=== PATIENT | male | born 1950 | race Caucasian/White ===

== ENCOUNTER 2016-07-19 14:55 | Observation (INO) ==
--- NOTE | 2016-07-19 16:02 | Emergency Department Note ---
Disposition Clinical Impression: Ptosis of eyelid, bilateral, Neck pain, chronic Disposition: Admitted As Inpatient Condition: Undetermined Referrals: Stefano Ontiveros MD [Primary Care Provider] - Forms: Work/School Release, ED Satisfaction Letter Time of Disposition: 16:14 Neuro HPI - General Chief Complaint: ED General Medical Stated Complaint: can't open eyelids Time Seen by Provider: 07/19/16 15:13 Nursing Notes Reviewed: Yes Vital Signs Reviewed: Yes - History of Present Illness HPI Narrative: Patient is 65-year-old male chief complaint of cannot open his eyes times this morning. [facility] was [facility] and head CT was taken that was unremarkable and patient was sent here for further workup and MRI. Patient denies chest pain, heart palpitations, abdominal pain, recent sick contacts and weakness. Patient's only complaint is an exacerbation of his chronic neck pain which she states hurts a lot more than usual. Patient has recent history of bulging disc of the cervical spine. Patient states he has radiation up to the base of the back of his skull. - Related Data Home Medications: Home Medications Medication Instructions Recorded Confirmed Albuterol Neb [Proventil Neb] 2 puff IH Q4H PRN 11/18/15 11/18/15 Albuterol Sulfate [Albuterol 2 puff IH Q4HR PRN 11/18/15 11/18/15 Inhaler] Amlodipine Besylate 10 mg PO DAILY 11/18/15 11/18/15 Aspirin Enteric Coated [Aspirin EC] 81 mg PO DAILY 11/18/15 11/18/15 Atorvastatin Calcium [Lipitor] 80 mg PO DAILY 11/18/15 11/18/15 Carvedilol 12.5 mg PO BID 11/18/15 11/18/15 Diazepam [Valium] 5 mg PO TID 11/18/15 11/18/15 Doxazosin Mesylate [Cardura] 8 mg PO HS 11/18/15 11/18/15 FLUoxetine HCl [PROzac] 20 mg PO DAILY 11/18/15 11/18/15 Gabapentin [Neurontin] 6 tab PO DAILY 11/18/15 11/18/15 Glimepiride [Amaryl] 4 mg PO BID 11/18/15 11/18/15 Insulin Glargine,Hum.rec.anlog 15 unit SQ BID 11/18/15 11/18/15 [Lantus Solostar] Liraglutide [Victoza 2-Gaston] 1.2 mg SQ DAILY 11/18/15 06/20/16 OxyCODONE/APAP 10/325 [Percocet 1 each PO Q6HR PRN 11/18/15 06/20/16 10/325 MG] Insulin NPH Hum/Reg Insulin Hm 0 unit SQ 07/19/16 [Novolin 70-30 100 Unit/ml Vial] Lisinopril [Zestril] 10 mg PO BID 07/19/16 07/19/16 Allergies/Adverse Reactions: Allergies Allergy/AdvReac Type Severity Reaction Status Date / Time Amoxicillin Allergy See Verified 06/20/16 15:15 Comments Erythromycin Base Allergy See Verified 07/19/16 15:07 Comments exenatide Allergy See Verified 07/19/16 15:07 Comments metformin Allergy See Verified 07/19/16 15:07 Comments Penicillins Allergy See Verified 06/20/16 15:15 Comments pravastatin Allergy See Verified 07/19/16 15:07 Comments simvastatin Allergy See Verified 07/19/16 15:07 Comments sulfamethoxazole Allergy See Verified 07/19/16 15:07 Comments trimethoprim Allergy See Verified 07/19/16 15:07 Comments valproic acid Allergy UNKNOWN Verified 11/18/15 07:29 PER PATIENT baclofen AdvReac "GOOFY" Verified 11/18/15 07:29 NSAIDS (Non-Steroidal AdvReac See Verified 11/18/15 07:29 Anti-Inflamma Comments promethazine AdvReac "GOOFY" Verified 11/18/15 07:29 All systems ED: reviewed and negative except as stated. Constitutional: Denies: fever, chills, weakness Eyes: Denies: eye pain, eye discharge, vision change ENT ED: Reports: congestion Cardiovascular: Denies: chest pain, palpitations, dyspnea on exertion Respiratory: Denies: cough, dyspnea, wheezes Gastrointestinal: Reports: diarrhea. Denies: abdominal pain, nausea, vomiting Musculoskeletal: Reports: back pain (Chronic), neck pain Past Medical History - Past Medical History Attestation: Yes The following information was validated with the patient. Source: patient Medical history: Reports: CHF, diabetes, hypertension, kidney stones, myocardial infarction, other Surgical history: Reports: cholecystectomy, coronary bypass (CABG) (2004) Psychiatric history: Reports: bipolar, other - Social History Smoking Status: Former smoker Smokeless Tobacco Status: No Alcohol use: Reports: unknown Drug use: Reports: none Physical Exam Vital Signs Temperature 98.4 F 07/19/16 14:57 Pulse Rate 60 07/19/16 14:57 Respiratory Rate 18 07/19/16 14:57 Blood Pressure 150/89 07/19/16 14:57 O2 Sat by Pulse Oximetry 98 07/19/16 14:57 Temperature 98.4 F 07/19/16 14:57 Pulse Rate 60 07/19/16 14:57 Respiratory Rate 18 07/19/16 14:57 Blood Pressure 150/89 07/19/16 14:57 O2 Sat by Pulse Oximetry 98 07/19/16 14:57 Oxygen Delivery Oxygen Delivery Room Air -General Appearance: Patient is a -Neurological exam: Cranial nerves II-12 intact, no focal deficits observed, strength equal 5/5 bilaterally in upper and lower extremities, cerebellar motion test negative. Negative loss of sensation - Head Head exam: atraumatic, normocephalic, normal inspection - Eye Eye exam: Present: normal appearance, PERRL, EOMI, negative for scleral icterus negative for conjunctival pallor patient's eyelids had to be held open for exam. - ENT ENT exam: normal exam, normal oropharynx, mucous membranes moist - Neck Neck exam: Present: normal inspection, full ROM, trachea midline, negative JVD - Chest Chest inspection: Present: Patient has bilateral equal rise and fall of chest wall. Non-tender to palpation. - Respiratory Respiratory exam: Clear to auscultation bilaterally without wheezes rales or rhonchi Cardiovascular Cardiovascular exam: Present: regular rate, normal rhythm, normal heart sounds, without murmurs rubs or gallops. - Abdominal Exam Abdominal exam: Present: soft, nondistended, Non-Tender light and deep palpation in all quadrants. Bowel sounds normoactive throughout all 4 quadrants. Negative for hyper or hyperresonance. - Extremities Exam Extremities exam: Present: normal inspection, full ROM - Back Exam Back exam: Present: normal inspection, full ROM. Absent: tenderness, CVA tenderness (R), CVA tenderness (L) - Psychiatric Psychiatric exam: Present: normal affect, normal mood - Skin Skin exam: Present: warm, dry, intact, normal color - General General appearance: alert, in no apparent distress Course Course Narrative: He is seen and examined. MRI of the head is ordered. Patient admitted to the hospital - Consultations Consultation #1: Dr. Lopez's accept the patient for admission 1600 hrs. Time: 16:00 Vital Signs Temperature 98.4 F 07/19/16 14:57 Pulse Rate 60 07/19/16 14:57 Respiratory Rate 18 07/19/16 14:57 Blood Pressure 150/89 07/19/16 14:57 O2 Sat by Pulse Oximetry 98 07/19/16 14:57 Temperature 98.4 F 07/19/16 14:57 Pulse Rate 60 07/19/16 14:57 Respiratory Rate 18 07/19/16 14:57 Blood Pressure 150/89 07/19/16 14:57 O2 Sat by Pulse Oximetry 98 07/19/16 14:57 Oxygen Delivery Oxygen Delivery Room Air Neuro Symptoms/Deficit - MDM Narrative Medical decision making narrative: Mr. Griffiths is a 65-year-old man with past medical history for COPD CHF and CABG. Patient is here today for complaint of bilateral ptosis of the eyelid 10 hours ago. She reports waking up and unable to open his eyes. No previous history of this ever happening. Patient was seen [facility] had a full workup done with exception of the MRI of the head. Workup up until that point was unremarkable patient was sent here for further workup concern for possible stroke/CVA. CT of the head showed no acute intracranial bleeds. Patient also concerning for possible myasthenia gravis. Peak expiratory flow test ordered to make sure patient is not having a myasthenia gravis crisis if it happens to be myasthenia gravis. Patient is admitted to medicine for further evaluation. Dr. Lopez has accepted patient for admission. - Radiology Data Radiology results reviewed: Yes I reviewed the patient's radiology results. Brain MRI 07/19/16 15:49 IMPRESSION: 1. No acute intracranial abnormality. 2. Mild chronic white matter microvascular ischemic changes and stable remote lacunar infarcts. D/ / Shabbir Hancock MD / Shabbir Hancock MD Interpreting Provider: Shabbir Hancock MD Checklist - LKW: 3-4.5 hrs Add. Contraindications Patient/family understanding: The patient/family members have been counseled and understood the risk, benefit , and alternatives of treatment.
--- NOTE | 2016-07-19 18:07 | Emergency Department Note ---
START Narrative - START START: For this encounter, I have reviewed the resident, MACHINIST 2[employer], or PA documentation, treatment plan, and medical decision making; and I have had face to face time with this patient. 65-year-old [facility]. Patient reports he was last normal at 6 AM, he states he developed acute inability to open both eyes although he was still able to walk, talk and had no other focal neural deficits. [facility] reports the patient had no extraocular muscle range of motion to examination. They did a CT which was negative for acute bleeding and sent him to [place] for further evaluation with MRI and by a neurologist. On my initial evaluation the patient is able to open and close his eyes however he states he cannot keep them open. Patient has the ability to look to the left, superior but has difficulty with looking to the right and inferiorly in bilateral eyes. Pupils are equal and reactive to light and accommodation. Patient is comfortable with the plan for admission to the hospital for further evaluation.
[2016-07-19] MEDS ORDERED: Acetaminophen 325 MG TABLET PO PRN (20:06)
[2016-07-19] MEDS ORDERED: Naloxone 0.4 MG/ML INJ IVP PRN (20:06)
[2016-07-19] MEDS ORDERED: diazePAM 5 MG TABLET PO PRN (20:17)
[2016-07-19] MEDS ORDERED: Albuterol 2.5 MG/3 ML NEBULIZER IH PRN (20:17)
[2016-07-19] MEDS ORDERED: *HR* OxyCODONE/APAP 10/325 TABLET PO PRN (20:17)
[2016-07-19] MEDS ORDERED: Dextrose Gel 15 GM PO PRN ×2 (20:19)
[2016-07-19] MEDS ORDERED: *HR* Dextrose 50 % in Water (Syg) 50 ML SYRINGE IVP PRN (20:19)
[2016-07-19] MEDS ORDERED: D5% in Water 1,000 ML IV PRN (20:19)
--- NOTE | 2016-07-19 20:24 | Internal Med History&Physical ---
Date of Encounter: 07/19/16 Time of Encounter: 19:40 Assessment and Plan (1) Conjunctivitis Current visit: Yes Status: Suspected 1. Will treat with Ofloxin eye drops. 2. Outpatient follow up. 3. MRI negative for stroke. On history and exam, I have no suspicion for stroke. Nonetheless, will obtain ECHO and carotid Dopplers given risk factors. 4. Per patient and [facility] request, will consult neurology. Qualifiers: Conjunctivitis type: acute Acute conjunctivitis type: bacterial Laterality: bilateral Qualified Code(s): H10.33 - Unspecified acute conjunctivitis, bilateral (2) Diabetes mellitus Current visit: Yes Status: Chronic 1. Will hold oral meds and continue basal insulin with SSI. 2. Monitor for hypoglycemia. 3. Adjust insulin dosing accordingly. Qualifiers: Diabetes mellitus type: type 2 Diabetes mellitus complication status: with kidney complications Diabetes mellitus complication detail: with chronic kidney disease Diabetes mellitus longterm insulin use: with longterm use Chronic kidney disease stage: stage 2 (mild) Qualified Code(s): E11.22 - Type 2 diabetes mellitus with diabetic chronic kidney disease; N18.2 - Chronic kidney disease, stage 2 (mild); Z79.4 - senior care (current) use of insulin (3) Hypertension Current visit: Yes Status: Chronic 1. Continue home meds as appropriate. 2. Hold TRAVIS due to kidney dysfunction -- may be his baseline. 3. Monitor and adjust meds as necessary. Qualifiers: Hypertension type: essential hypertension Qualified Code(s): I10 - Essential (primary) hypertension (4) DVT prophylaxis Current visit: Yes Status: Acute 1. Heparin SQ. Internal Medicine - H&P: HPI Chief complaint: eyelid weakness; crusting eyes Admitted From: Emergency Dept Plans for Post Hospital Care: Home History of present illness: Mr. Griffiths is a 65 year old male who was seen in the [place] urgent care today and sent to our ER for possible stroke workup. At that time, he complained of inability to "see" and was unable to open his eyelids. He complained of crusting drainage from both eyes, and his eyelids were closed shut. His daughter brought him to the [place] urgent care where he had a workup including CT of the head. Workup was essentially negative, but he was referred to our ER for MRI, admission, and neurology consult. In the ER, an MRI was performed, and this was negative for any stroke. He was informed of the results, and he was then able to open his eyes easily and had no further complaints at that time. Nonetheless, he was admitted to the hospitalist service for further workup and care. Upon my assessment of the patient, patient is quite jovial, alert, and has no complaints whatsoever. He does reiterate the crusting drainage and eye complaints he had earlier today. He complains of some mild burning in his eyes and eye drainage for the last 2 days. He denies any fevers, cough, or congestion. With regards to neurologic complaints, he has no component of any numbness, weakness, paralysis, paresthesias, choking, gagging, dysarthria, and/ or dysphagia. He denies any visual acuity or any problems with his eyes other than the crusting drainage noted above. He does have risk factors for stroke which include diabetes, hypertension, hyperlipidemia, and cardiovascular disease. Given that his MRI was negative, I feel comfortable and confident that he did not have a stroke. Furthermore, I suspect his eye complaints are more from conjunctivitis and/or conversion disorder, and nothing neurovascular in nature. Other than MRI of the head, he had no other work-up in our ER. [facility] and the [facility] obtained [facility], including the EKG. Past Med Surg Social Fam HX - Past Medical History Attestation: Yes The following information was validated with the patient. Source: patient, old records reviewed Medical history: CHF, diabetes, hyperlipidemia, hypertension, kidney stones, myocardial infarction Psychiatric history: anxiety, bipolar, depression - Past Surgical History Surgical History: cholecystectomy, coronary bypass (CABG) (2004) - Social History Smoking Status: Former smoker Smokeless Tobacco Status: No Alcohol use: unknown Drug use: none Current living situation: Home, With Family Activity Level: Independent ambulation Recent Out of Country Travel Within the Last 8 Weeks: No - Family History Mother Living Status: Hx Family Cardiac Disorders: Yes Hx Family Neurologic Disorders: Yes Father Living Status: Hx Family Cardiac Disorders: Yes Internal Medicine - H&P: Meds Albuterol Neb [Proventil Neb] 2.5 mg IH Q4-6H PRN 11/18/15 [History] Albuterol Sulfate [Albuterol Inhaler] 2 puff IH Q6H PRN 11/18/15 [History] Amlodipine Besylate 10 mg PO DAILY 11/18/15 [History] Aspirin Enteric Coated [Aspirin EC] 81 mg PO DAILY 11/18/15 [History] Atorvastatin Calcium [Lipitor] 80 mg PO HS 11/18/15 [History] Carvedilol 12.5 mg PO BID 11/18/15 [History] Diazepam [Valium] 5 mg PO BID 11/18/15 [History] Doxazosin Mesylate [Cardura] 8 mg PO HS 11/18/15 [History] FLUoxetine HCl [PROzac] 40 mg PO DAILY 11/18/15 [History] Gabapentin [Neurontin] 600 mg PO QID 11/18/15 [History] Glimepiride [Amaryl] 4 mg PO BID 11/18/15 [History] Insulin Glargine,Hum.rec.anlog [Lantus Solostar] 15 unit SQ BID 11/18/15 [ History] Liraglutide [Victoza 2-Gaston] 0.6 mg SQ DAILY 11/18/15 [History] OxyCODONE/APAP 10/325 [Percocet 10/325 MG] 1 each PO QID 11/18/15 [History] Insulin NPH Hum/Reg Insulin Hm [Novolin 70-30 100 Unit/ml Vial] 0 unit SQ [History] Lisinopril [Zestril] 10 mg PO BID 07/19/16 [History] Allergies Amoxicillin Allergy (Verified 06/20/16 15:15) See Comments Erythromycin Base Allergy (Verified 07/19/16 15:07) See Comments exenatide Allergy (Verified 07/19/16 15:07) See Comments metformin Allergy (Verified 07/19/16 15:07) See Comments Penicillins Allergy (Verified 06/20/16 15:15) See Comments pravastatin Allergy (Verified 07/19/16 15:07) See Comments simvastatin Allergy (Verified 07/19/16 15:07) See Comments sulfamethoxazole Allergy (Verified 07/19/16 15:07) See Comments trimethoprim Allergy (Verified 07/19/16 15:07) See Comments valproic acid Allergy (Verified 11/18/15 07:29) UNKNOWN PER PATIENT baclofen Adverse Reaction (Verified 11/18/15 07:29) "GOOFY" NSAIDS (Non-Steroidal Anti-Inflamma Adverse Reaction (Verified 11/18/15 07:29) See Comments PATIENT ADVISED BY DR NOT TO TAKE promethazine Adverse Reaction (Verified 11/18/15 07:29) "GOOFY" - Constitutional Constitutional: no chills, no fever(s), no lethargy - EENT Eyes: discharge, irritation, no blurry vision, no change in vision Ears: no ear pain, no tinnitus Nose, mouth and throat: no nasal congestion, no nasal discharge, no post-nasal drip, no sinus pain, no sinus pressure, no sore throat - Cardiovascular Cardiovascular ROS IM: no chest pain, no dyspnea, no dyspnea on exertion, no edema, no palpitations, no syncope - Respiratory Respiratory: no cough, no dyspnea, no hemoptysis, no dyspnea on exertion, no wheezing, no chest congestion, no excessive phlegm production - Gastrointestinal Gastrointestinal: no abdominal pain, no diarrhea, no nausea, no vomiting - Genitourinary Genitourinary ROS male: no dysuria, no flank pain, no hematuria - Musculoskeletal Musculoskeletal ROS IM: no arthralgias, no back pain, no muscle weakness - Integumentary Integumentary IM: no rash, no jaundice - Neurological Neurological ROS: no disequilibrium, no dizziness, no focal weakness, no headache(s), no lack of coordination, no numbness, no paresthesias, no weakness , no other visual disturbances - Psychiatric Psychiatric: anxiety, depression - Endocrine Endocrine IM: no cold intolerance, no heat intolerance, no polydipsia, no polyuria - Hematologic/Lymphatic Hematologic/Lymphatic: no easy bruising, no lymphadenopathy - Allergic/Immunologic Allergic/Immunologic: no wheezing, no GI upset with certain foods - Constitutional Vitals: Temp Pulse Resp BP Pulse Ox 97.7 F 88 16 145/78 100 07/19/16 18:13 07/19/16 18:13 07/19/16 18:13 07/19/16 18:13 07/19/16 18:13 General appearance: Present: cooperative, A&O X 3, pleasant (unusually very pleasant), no acute distress - Head Head exam: Present: atraumatic, normal inspection - Expanded Head Exam Head exam expanded: Absent: abrasion, contusion, general tenderness - Eye Eye exam: Present: conjunctival injection, EOMI, PERRL. Absent: scleral icterus Pupils: Present: normal accommodation Additional comments: mild crusting drainage from both eyes bilaterally - ENT ENT exam: Present: mucous membranes moist, normal exam, normal oropharynx - Expanded ENT Exam Mouth exam: Present: moist Throat exam: Present: normal inspection - Neck Neck exam general surgery: Present: full ROM, normal inspection, supple. Absent : lymphadenopathy, thyromegaly - Expanded Neck Exam Neck exam: Absent: carotid bruit - Respiratory Respiratory exam: Present: CTAB. Absent: chest wall tenderness, rales, rhonchi , wheezes - Cardiovascular Cardiovascular exam: Present: RRR, +S1, +S2, systolic murmur (grade II). Absent : diastolic murmur, JVD - GI/Abdominal GI/Abdominal exam: Present: normal bowel sounds, soft. Absent: guarding, hepatomegaly, rebound, splenomegaly, tenderness - Extremities Exam Extremities exam: Present: full ROM, normal capillary refill, warm. Absent: calf tenderness, joint swelling, tenderness Additional comments: right foot in an immoblizer/boot due to recent injury - Back Exam Back exam: Present: normal inspection. Absent: CVA tenderness (L), CVA tenderness (R) - Neurological Exam Neurological exam: Present: alert, CN II-XII intact, oriented X3, reflexes normal, no focal deficits, strengths equal and symetr throughout. Absent: motor sensory deficit, facial droop, speech deficit Additional comments: I appreciate no focal deficits on exam - Psychiatric Psychiatric exam: Present: normal affect, normal mood Additional comments: seems inappropriately jovial beyond expectations - Skin Skin exam: Present: dry, warm. Absent: rash Internal Med - H&P Results - Labs Labs: I personally viewed and [facility] and they include the following: PTT 25.6 INR 0.9 PT 9.8 CK 134 Ethanol < 3 Calcium 8.4 Sodium 142 Potassium 4.0 Chloride 107 CO2 28 Glucose 219 BUN 122 Creatinine 1.44 WBC 8.1 Hemoglobin 14.1 Hematocrit 42.2 Platelet count 227 - EKG Data -: EKG Interpreted by Myself EKG shows normal: sinus rhythm Rate: bradycardia - EKG Data Prior EKG available for review: no EKG comments: 07/19/16 20:42 [facility] copy -- also has prolonged Qtc = 461 - Diagnostic Studies MRI - head Additional comments: I reviewed results
[2016-07-19] MEDS ORDERED: Ofloxacin OPTH Drops 5 ML BOTTLE BOTH EYES SCH (20:30)
[2016-07-19] MEDS: *HR* Heparin 5,000 UNIT/ML VIAL SQ SCH (21:06)
[2016-07-19] MEDS: Ciprofloxacin OPTH Soln 2.5 ML BOTTLE BOTH EYES SCH (21:06)
[2016-07-19] MEDS: Gabapentin 300 MG CAPSULE PO SCH (21:07)
[2016-07-19] MEDS: Insulin DETEMIR 100 UNIT/ML X5UNITS SQ SCH (21:12)
[2016-07-19 22:51] LABS: Hemoglobin A1C 8.3 %
[2016-07-20] MEDS: Ciprofloxacin OPTH Soln 2.5 ML BOTTLE BOTH EYES SCH ×2 (04:14→08:01)
[2016-07-20 04:43] LABS: Basophils # 0.1 K/mcL (0.0-0.2); Basophils % 0.9 %; Eosinophils # 0.4 K/mcL (0.0-0.6); Eosinophils % 4.5 %; Hematocrit 39.5 % (37.5-50.1); Hemoglobin 13.2 g/dL (12.9-16.9); Immature Granulocytes % 0.3 % (0-4); Lymphocytes # 2.4 K/mcL (0.6-4.6); Lymphocytes % 29.9 %; Mean Corpuscular HGB Conc 33.4 g/dL (31.6-35.5); Mean Corpuscular Volume 89.8 fL (83.0-100.0); Mean Platelet Volume 11.5 fL (9.4-12.4); Monocytes # 0.7 K/mcL (0.0-1.3); Monocytes % 8.7 %; Neutrophils # 4.4 K/mcL (1.6-8.9); Platelet Count 200 K/mcL (140-400); Red Cell Distribution Width 13.4 % (11.5-14.5); Segmented Neutrophils % 55.7 %
[2016-07-20 04:46] LABS: INR 1.1; Prothrombin Time 11.5 Seconds (9.4-12.1)
[2016-07-20 04:49] LABS: Activated Partial Thrombo Time 31.9 Seconds (26.0-36.0)
[2016-07-20 04:55] LABS: BUN/Creatinine Ratio 14 (6-26); Blood Urea Nitrogen 19 mg/dL (8-26); Carbon Dioxide 25 mEq/L (19-29); Chloride 106 mEq/L (98-109); Sodium 140 mEq/L (136-145); eGFR For African Americans > 60 (> 60)
[2016-07-20 04:56] LABS: Alanine Aminotransferase 20 Units/L (0-55); Albumin 2.9 g/dL (3.5-5.0); Albumin/Globulin Ratio 0.8 (1.1-2.2); Alkaline Phosphatase 89 Units/L (38-126); Aspartate Amino Transferase 15 Units/L (5-34); Bilirubin,Total 0.2 mg/dL (0.2-1.2); Calcium 8.6 mg/dL (8.6-10.8); Cholesterol 175 mg/dL (< 200); Globulin 3.8 g/dL (2.4-3.5); Glucose 209 mg/dL (70-99); HDL Cholesterol 22 mg/dL (40-59); Magnesium 2.3 mg/dL (1.6-2.6); Osmolality,Calculated 298 (280-300); Total Protein 6.7 g/dL (6.0-8.3); Triglycerides 591 mg/dL (< 150); eGFR For Non-African Americans 53 (> 60)
[2016-07-20] MEDS: *HR* Heparin 5,000 UNIT/ML VIAL SQ SCH (06:07)
[2016-07-20] MEDS: Insulin DETEMIR 100 UNIT/ML X5UNITS SQ SCH (07:54)
[2016-07-20] MEDS: Insulin LISPRO 300 UNITS/3 ML VIAL SQ SCH ×2 (07:54→12:36)
[2016-07-20] MEDS: Gabapentin 300 MG CAPSULE PO SCH ×2 (07:55→12:36)
[2016-07-20] MEDS ORDERED: Aspirin Enteric Coated 81 MG Tablet PO SCH (09:00)
[2016-07-20] MEDS ORDERED: amLODIPine 5 MG TABLET PO SCH (09:00)
--- NOTE | 2016-07-20 10:45 | Neurology - Consult Note ---
<Braden Grissom - Last Filed: 07/20/16 11:04> Date of Encounter: 07/20/16 Time of Encounter: 09:35 Assessment and Plan (1) Ptosis of eyelid, bilateral Current Visit: Yes Status: Acute - seems to have spontaneously resolved - no radiographic or exam findings to suggest possible etiology - Does have diabetic changes on fundoscopic exam but should not be related - No obvious conjunctivitis - Would recommend supportive care - Follow up with his patient account liaison in 1-2 weeks - Further recommendations pending attending evaluation History of Present Illness Chief complaint: can't open eyes HPI: Mr. Griffiths is a 65 year old male who presents through the [facility] from the [facility] with the CC: "I couldn't open my eyes' Patient reports that he woke up yesterday morning to the alarm on his phone. He was getting up to get his grandchild ready for school. He could open his eyes and was having no changes in vision. He reports he walked into the bathroom to start getting ready and could no longer open his eyes. He denies any headache, changes in his vision, neck pain, chest pain, shortness of breath , dizziness, syncope, abdominal pain, n/v/d, pain or swelling in his legs, numbness of weakness in any extremity. He states that his R eye began to water and throughout the day, noticed that if he rubbed his eyes or washed them with soap that he could open his eye a little. He reports similar issues with the left eye. He does state that he was supposed to see Dr. Romero with Neurology here but had to cancel his appointment. He went to the [place] yesterday to see the neurologist there but he was on vacation so he was sent to the ED for a MRI. MRI did not show any acute changes. According to record review, after the patient was told this, he could open his eyes again. He has no complaints currently. Has had no further issues of any kind since arrival. Past Med Surg Social Fam HX - Past Medical History Medical history: CHF, diabetes, hyperlipidemia, hypertension, kidney stones, myocardial infarction Psychiatric history: anxiety, bipolar, depression - Past Surgical History Surgical History: cholecystectomy, coronary bypass (CABG) (2004) - Social History Smoking Status: Former smoker Smokeless Tobacco Status: No Alcohol use: unknown Drug use: none - Family History Mother Living Status: Hx Family Cardiac Disorders: Yes Hx Family Neurologic Disorders: Yes Father Living Status: Hx Family Cardiac Disorders: Yes Medications and Allergies Albuterol Neb [Proventil Neb] 2.5 mg IH Q4-6H PRN 11/18/15 [History] Albuterol Sulfate [Albuterol Inhaler] 2 puff IH Q6H PRN 11/18/15 [History] Amlodipine Besylate 10 mg PO DAILY 11/18/15 [History] Aspirin Enteric Coated [Aspirin EC] 81 mg PO DAILY 11/18/15 [History] Atorvastatin Calcium [Lipitor] 80 mg PO HS 11/18/15 [History] Carvedilol 12.5 mg PO BID 11/18/15 [History] Diazepam [Valium] 5 mg PO BID 11/18/15 [History] Doxazosin Mesylate [Cardura] 8 mg PO HS 11/18/15 [History] FLUoxetine HCl [Prozac] 40 mg PO DAILY 11/18/15 [History] Gabapentin [Neurontin] 600 mg PO QID 11/18/15 [History] Glimepiride [Amaryl] 4 mg PO BID 11/18/15 [History] Insulin Glargine,Hum.rec.anlog [Lantus Solostar] 15 unit SQ BID 11/18/15 [ History] Liraglutide [Victoza 2-Gaston] 0.6 mg SQ DAILY 11/18/15 [History] OxyCODONE/APAP 10/325 [Percocet 10/325 MG] 1 each PO QID 11/18/15 [History] Insulin NPH Hum/Reg Insulin Hm [Novolin 70-30 100 Unit/ml Vial] 0 unit SQ [History] Lisinopril [Zestril] 10 mg PO BID 07/19/16 [History] Ciprofloxacin OPTH Soln [Ciloxan OPTH Soln] 1 drop BOTH EYES Q6H 5 Days [Rx] Allergies Amoxicillin Allergy (Verified 06/20/16 15:15) See Comments Erythromycin Base Allergy (Verified 07/19/16 15:07) See Comments exenatide Allergy (Verified 07/19/16 15:07) See Comments metformin Allergy (Verified 07/19/16 15:07) See Comments Penicillins Allergy (Verified 06/20/16 15:15) See Comments pravastatin Allergy (Verified 07/19/16 15:07) See Comments simvastatin Allergy (Verified 07/19/16 15:07) See Comments sulfamethoxazole Allergy (Verified 07/19/16 15:07) See Comments trimethoprim Allergy (Verified 07/19/16 15:07) See Comments valproic acid Allergy (Verified 11/18/15 07:29) UNKNOWN PER PATIENT baclofen Adverse Reaction (Verified 11/18/15 07:29) "GOOFY" NSAIDS (Non-Steroidal Anti-Inflamma Adverse Reaction (Verified 11/18/15 07:29) See Comments PATIENT ADVISED BY DR NOT TO TAKE promethazine Adverse Reaction (Verified 11/18/15 07:29) "GOOFY" All Systems: A 10-system review of systems was performed and is negative for pertinent findings except as documented above in the HPI. - Constitutional Constitutional ROS IM: no fatigue, no fever(s) - Nose, Mouth, Throat Nose, mouth and throat: no dysphagia - Cardiovascular Cardiovascular ROS IM: as per HPI - Respiratory Respiratory IM: no cough, no dyspnea - Gastrointestinal Gastrointestinal: as per HPI - Musculoskeletal Musculoskeletal ROS IM: neck pain (chronic, no change), no back pain - Neurological Neurological ROS: as per HPI - Psychiatric Psychiatric general PM: as per HPI - Endocrine Endocrine IM: no fatigue, no flushing Physical Examination - Vital Signs Vital Signs: Initial Vital Signs Temp Pulse Resp BP Pulse Ox 98.4 F 60 18 150/89 98 07/19/16 14:57 07/19/16 14:57 07/19/16 14:57 07/19/16 14:57 07/19/16 14:57 - Constitutional General appearance: comfortable - Neurologic Detailed motor examination: grossly full strength in all extremities, full strength in all major muscle groups Motor examination - right side: 5/5: deltoids, biceps, triceps, wrist flexion, wrist extension, cloth stock sorter, hip flexors, tibialis Anterior, quadriceps, toe extension (EHL), plantarflexion Motor examination - left side: 5/5: deltoids, biceps, triceps, wrist flexion, wrist extension, hip flexors, cloth stock sorter, quadriceps, tibialis Anterior (patient in ortho boot, unable to examine, states h/o "foot drop" after a surgery), toe extension (EHL) (see above), plantarflexion (see above) Detailed sensory examination: intact Reflexes: Patella: 1+, Achilles: 1+ Mental Status Examination: awake, alert, oriented to person, oriented to place, oriented to time, follows commands appropriately, answers questions appropriately, no agnosia, no aphasia, no aproxia Cranial nerve examination: PERRL, EOMI, visual canales intact, sensory to face intact, mastication intact, no facial asymmetry is present, no dysarthria, hearing is intact symmetrically, soft palate elevates bilaterally upon phonation , flexes SCM and trapezius muscles symmetrically with full power, tongue protrudes midline, no atrophy or facial fasiculations present Cranial Nerve Exam: ptosis: Left (NO PTOSIS BILAT), CN III palsy: Left ( NEGATIVE BILAT) Cerebellar examination: no dysmetria, performs finger to nose and heel to gerber symmetrically without ataxia, no gait ataxia, no truncal ataxia, no difficulty with rapid alternating movements Results - Laboratory Findings CBC and BMP: 07/20/16 04:02 07/20/16 04:02 Abnormal lab findings: Abnormal lab results Creatinine 1.36 mg/dL (0.72-1.25) H 07/20/16 04:02 Est GFR (Non-Af Amer) 53 (> 60) L 07/20/16 04:02 Glucose 209 mg/dL (70-99) H 07/20/16 04:02 POC Glucose 197 (58-89) H 07/20/16 07:11 Hemoglobin A1c 8.3 % (-5.6) H 07/19/16 22:00 Albumin 2.9 g/dL (3.5-5.0) L 07/20/16 04:02 Globulin 3.8 g/dL (2.4-3.5) H 07/20/16 04:02 Albumin/Globulin Ratio 0.8 (1.1-2.2) L 07/20/16 04:02 Triglycerides 591 mg/dL (< 150) H 07/20/16 04:02 HDL Cholesterol 22 mg/dL (40-59) L 07/20/16 04:02 Cholesterol/HDL Ratio 8.0 (0-4.9) H 07/20/16 04:02 Consult Discharge Plan - Plan Additional Instructions: Follow-up with primary care provider in 1-2 weeks, follow-up with your patient account liaison in 1-2 weeks Referrals: Stefano Ontiveros MD [Primary Care Provider] - 07/26/16 1:20 pm Prescriptions: Ciprofloxacin OPTH Soln [Ciloxan OPTH Soln] 1 drop BOTH EYES Q6H 5 Days <Gato Oh I - Last Filed: 07/20/16 16:19> Date of Encounter: 07/20/16 Assessment and Plan (1) Ptosis of eyelid, bilateral Current Visit: Yes Status: Resolved Was seen and examined aggravated with Dr. Feliciano assessment and plan. At the moment patient did not have any focal neurological signs and symptoms and his neurological examination is completely normal. He did not have any drooping of the eyelids neither has any blepharospasms. Cranial nerves are within normal limits. MRI scan did not show any evidence of a stroke or any other abnormality At the moment I am not able to explain his symptoms with any typical neurological disorder particularly I did not noticed any sinus symptoms and history of exam to be suggestive of myasthenia or any dystrophic. Perhaps may Be Related to Underlying Behavior Abnormality. Regardless he should be evaluated by a psychiatrist if he continued to be symptomatic again no neurological symptoms at this time we will sign off call if needed Gato Oh MD History of Present Illness HPI: Mr. Griffiths is a 65 year old male All Systems: A 10-system review of systems was performed and is negative for pertinent findings except as documented above in the HPI. Physical Examination - Vital Signs Vital Signs: Initial Vital Signs Temp Pulse Resp BP Pulse Ox 98.4 F 60 18 150/89 98 07/19/16 14:57 07/19/16 14:57 07/19/16 14:57 07/19/16 14:57 07/19/16 14:57 Results - Laboratory Findings CBC and BMP: 07/20/16 04:02 07/20/16 04:02 Abnormal lab findings: Abnormal lab results Creatinine 1.36 mg/dL (0.72-1.25) H 07/20/16 04:02 Est GFR (Non-Af Amer) 53 (> 60) L 07/20/16 04:02 Glucose 209 mg/dL (70-99) H 07/20/16 04:02 POC Glucose 152 (58-89) H 07/20/16 11:30 Hemoglobin A1c 8.3 % (-5.6) H 07/19/16 22:00 Albumin 2.9 g/dL (3.5-5.0) L 07/20/16 04:02 Globulin 3.8 g/dL (2.4-3.5) H 07/20/16 04:02 Albumin/Globulin Ratio 0.8 (1.1-2.2) L 07/20/16 04:02 Triglycerides 591 mg/dL (< 150) H 07/20/16 04:02 HDL Cholesterol 22 mg/dL (40-59) L 07/20/16 04:02 Cholesterol/HDL Ratio 8.0 (0-4.9) H 07/20/16 04:02
[2016-07-20 11:34] VITALS: BP 124/77
--- NOTE | 2016-07-20 14:57 | Discharge Summary ---
Date of Encounter: 07/20/16 Time of Encounter: 14:00 - Discharge Diagnosis (1) Ptosis of eyelid, bilateral Priority: Primary Status: Resolved (2) Conjunctivitis Priority: Primary Status: Suspected Qualifiers: Conjunctivitis type: acute Acute conjunctivitis type: bacterial Laterality: bilateral Qualified Code(s): H10.33 - Unspecified acute conjunctivitis, bilateral (3) Conversion disorder Priority: Primary Status: Suspected Comments: Neurological examination inconsistent. Bilateral ptosis and consistent. Handbag Frames Inspector strength equal. CVA ruled out. No vision changes. (4) CKD (chronic kidney disease) stage 3, GFR 30-59 ml/min Priority: Secondary Status: Chronic Comments: Consistent with his baseline, follow-up outpatient (5) DVT prophylaxis Priority: Primary Status: Acute Comments: Subcutaneous heparin while admitted (6) Neck pain, chronic Priority: Secondary Status: Chronic (7) Diabetes mellitus Priority: Secondary Status: Chronic Comments: Moderately controlled with an A1c of 8.3%, recommend continued follow-up outpatient Qualifiers: Diabetes mellitus type: type 2 Diabetes mellitus complication status: with kidney complications Diabetes mellitus complication detail: with chronic kidney disease Diabetes mellitus chcf insulin use: with chcf use Chronic kidney disease stage: stage 2 (mild) Qualified Code(s): E11.22 - Type 2 diabetes mellitus with diabetic chronic kidney disease; N18.2 - Chronic kidney disease, stage 2 (mild); Z79.4 - retirement (current) use of insulin (8) Hypertension Priority: Secondary Status: Chronic Comments: Controlled, recommend continued follow-up outpatient Qualifiers: Hypertension type: essential hypertension Qualified Code(s): I10 - Essential (primary) hypertension - Discharge Medications Prescriptions: Ciprofloxacin OPTH Soln [Ciloxan OPTH Soln] 1 drop BOTH EYES Q6H 5 Days Home Medications: Albuterol Neb [Proventil Neb] 2.5 mg IH Q4-6H PRN 11/18/15 [History] Albuterol Sulfate [Albuterol Inhaler] 2 puff IH Q6H PRN 11/18/15 [History] Amlodipine Besylate 10 mg PO DAILY 11/18/15 [History] Aspirin Enteric Coated [Aspirin EC] 81 mg PO DAILY 11/18/15 [History] Atorvastatin Calcium [Lipitor] 80 mg PO HS 11/18/15 [History] Carvedilol 12.5 mg PO BID 11/18/15 [History] Diazepam [Valium] 5 mg PO BID 11/18/15 [History] Doxazosin Mesylate [Cardura] 8 mg PO HS 11/18/15 [History] FLUoxetine HCl [Prozac] 40 mg PO DAILY 11/18/15 [History] Gabapentin [Neurontin] 600 mg PO QID 11/18/15 [History] Glimepiride [Amaryl] 4 mg PO BID 11/18/15 [History] Insulin Glargine,Hum.rec.anlog [Lantus Solostar] 15 unit SQ BID 11/18/15 [ History] Liraglutide [Victoza 2-Gaston] 0.6 mg SQ DAILY 11/18/15 [History] OxyCODONE/APAP 10/325 [Percocet 10/325 MG] 1 each PO QID 11/18/15 [History] Insulin NPH Hum/Reg Insulin Hm [Novolin 70-30 100 Unit/ml Vial] 0 unit SQ [History] Lisinopril [Zestril] 10 mg PO BID 07/19/16 [History] Ciprofloxacin OPTH Soln [Ciloxan OPTH Soln] 1 drop BOTH EYES Q6H 5 Days [Rx] Allergies/Adverse Reactions: Allergies Amoxicillin Allergy (Verified 06/20/16 15:15) See Comments Erythromycin Base Allergy (Verified 07/19/16 15:07) See Comments exenatide Allergy (Verified 07/19/16 15:07) See Comments metformin Allergy (Verified 07/19/16 15:07) See Comments Penicillins Allergy (Verified 06/20/16 15:15) See Comments pravastatin Allergy (Verified 07/19/16 15:07) See Comments simvastatin Allergy (Verified 07/19/16 15:07) See Comments sulfamethoxazole Allergy (Verified 07/19/16 15:07) See Comments trimethoprim Allergy (Verified 07/19/16 15:07) See Comments valproic acid Allergy (Verified 11/18/15 07:29) UNKNOWN PER PATIENT baclofen Adverse Reaction (Verified 11/18/15 07:29) "GOOFY" NSAIDS (Non-Steroidal Anti-Inflamma Adverse Reaction (Verified 11/18/15 07:29) See Comments PATIENT ADVISED BY DR NOT TO TAKE promethazine Adverse Reaction (Verified 11/18/15 07:29) "GOOFY" Procedures/tests Complete & Pending: Procedures Performed prior 72 hours Category Date Time Status ECG 12 lead ECG [ECG] AM 0600 Y 07/20/16 06:00 Ordered EV carotid duplex imaging BI Routine Y 07/19/16 20:06 Ordered EV echocardiogram Routine Y 07/19/16 20:06 Ordered Date of admission: 07/19/16 16:26 Primary care physician: Stefano Ontiveros MD Consults: 07/19/16 20:17 Consult to Neurology [CONS] Routine Consulting Provider: Neurology [facility] Reason for Consult: eyelid weakness Time Notified: 20:17 Call Completed: Yes Discharging clinician: Yael Ma Anticipated date of discharge: 07/20/16 - Patient Status Disposition: Home, Self-Care Condition: Good Functional capacity at discharge: independent ambulation Overall status at discharge: patient is back to baseline - Discharge Instructions Follow Up With: Stefano Ontiveros MD [Primary Care Provider] - Additional Instructions: Follow-up with primary care provider in 1-2 weeks, follow-up with your histology technician in 1-2 weeks - Diet and Activity Activity: increase activity as tolerated Diet: diabetic diet, low fat, low cholesterol, low salt diet Hospital course: Mr. Griffiths is a 65 year old male past medical history diabetes, hyperlipidemia, hypertension, kidney stones, bipolar, cholecystectomy, CAD status post CABG, former tobacco abuse. Patient presented from the [facility] chief complaint possible stroke workup. Patient initially presented to urgent care complaining of inability to see and was unable to open his eyelids. Patient also complaining of crusting drainage to both eyes and that his eyelids were matted shut upon awakening. Workup at [facility] urgent care reported as negative. Head CT reported as negative. He was then transferred [facility]'s emergency Department where a MRI of his brain was also negative. He was then admitted to the hospitalist service for further evaluation and management. He was started on ciprofloxacin drops for likely primary diagnosis of conjunctivitis. CVA ruled out. Patient's bilateral ptosis and inability to see resolved prior to discharge. He was seen by neurology who recommended outpatient follow-up with his histology technician in 1-2 weeks. He remained asymptomatic throughout this admission and he was discharged home in stable condition with close outpatient follow-up recommended. Of note, echocardiogram and carotid ultrasound pending at time of discharge, recommend follow-up outpatient with primary care provider for results. Low suspicion for abnormalities, okay to wait for primary care provider. ITS Impressions Brain MRI 07/19/16 15:49 IMPRESSION: 1. No acute intracranial abnormality. 2. Mild chronic white matter microvascular ischemic changes and stable remote lacunar infarcts. D/ / Shabbir Hancock MD / Shabbir Hancock MD Interpreting Provider: Shabbir Hancock MD - Time Spent with Patient Total time spent providing and/or coordinating discharge services: - Constitutional Vitals: Temp Pulse Resp BP Pulse Ox 97.4 F L 60 17 124/77 93 L 07/20/16 11:32 07/20/16 11:32 07/20/16 11:32 07/20/16 11:32 07/20/16 11:32 General appearance: Present: cooperative, A&O X 3, pleasant (unusually very pleasant), no acute distress, answers questions appropriately - Head Head exam: Present: atraumatic, normocephalic - Eye Eye exam: Present: EOMI, PERRL, conjuntiva pink, sclera anicteric Pupils: Present: PERRL - Neck Neck exam general surgery: Present: supple, trachea midline. Absent: lymphadenopathy - Respiratory Respiratory exam: Present: CTAB. Absent: accessory muscle use, rales, respiratory distress, rhonchi, wheezes - Cardiovascular Cardiovascular exam: Present: RRR, +S1, +S2. Absent: diastolic murmur, gallop, rubs, systolic murmur - GI/Abdominal GI/Abdominal exam: Present: normal bowel sounds, soft, no peritoneal signs. Absent: distended, tenderness - Extremities Exam Extremities exam: Present: warm, radial pulses palpable and symetrical. Absent : calf tenderness, cyanotic, pedal edema - Neurological Exam Neurological exam: Present: alert, CN II-XII intact, oriented X3, no focal deficits, strengths equal and symetr throughout. Absent: pronater drift, facial droop, speech deficit - Skin Skin exam: Present: dry, intact, normal color, warm
== END 2016-07-20 16:38 | disposition home or self-care (01) ==
LOC: EMEROO 14:55 → 3BNU 14:55
PROVIDERS: ADMIT Pediatrics; ATTEND Nurse Practitioner Family

== ENCOUNTER 2017-09-19 20:25 | Observation (INO) ==
[2017-09-19 21:34] LABS: Bilirubin,Urine Negative (Negative); Blood,Urine Negative (Negative); Clarity,Urine Clear (Clear); Color,Urine Yellow (Yellow); Glucose,Urine (UA) >=1000 mg/dL (Normal); Ketones,Urine Negative (Negative); Leukocyte Esterase,Urine Negative (Negative); Nitrite,Urine Negative (Negative); PH,Urine 6.5 pH Units (5.0-8.0); Protein,Urine 100 mg/dL (Neg-Trace); Specific Gravity,Urine 1.021 (1.010-1.025); Urobilinogen,Urine Normal (Normal)
[2017-09-19 21:37] LABS: Bacteria,Urine None Seen per hpf (None-Few); Hyaline Casts,Urine None Seen per lpf (None-Few); RBC,Urine 0-3 per hpf (0-3); Squamous Epithelial Cell,Urine Few per lpf (None-Few); WBC,Urine 0-3 per hpf (0-3)
[2017-09-19 22:01] LABS: Basophils # 0.1 K/mcL (0.0-0.2); Basophils % 0.8 %; Eosinophils # 0.3 K/mcL (0.0-0.6); Eosinophils % 3.8 %; Hematocrit 42.8 % (37.5-50.1); Hemoglobin 14.2 g/dL (12.9-16.9); Immature Granulocytes % 0.3 % (0-4); Lymphocytes % 25.8 %; Mean Corpuscular HGB Conc 33.2 g/dL (31.6-35.5); Mean Corpuscular Volume 87.5 fL (83.0-100.0); Mean Platelet Volume 11.2 fL (9.4-12.4); Monocytes # 0.6 K/mcL (0.0-1.3); Monocytes % 8.1 %; Neutrophils # 4.8 K/mcL (1.6-8.9); Platelet Count 233 K/mcL (140-400); Red Blood Count 4.89 M/mcL (4.19-5.50); Red Cell Distribution Width 13.4 % (11.5-14.5); Segmented Neutrophils % 61.2 %
[2017-09-19 22:24] LABS: Alanine Aminotransferase 19 Units/L (7-52); Albumin 4.1 g/dL (3.5-5.7); Albumin/Globulin Ratio 1.3 (1.1-2.2); Alkaline Phosphatase 93 Units/L (34-104); Amylase 43 Units/L (29-103); Aspartate Amino Transferase 17 Units/L (13-39); BUN/Creatinine Ratio 8 (6-26); Bilirubin,Direct 0.2 mg/dL (0.0-0.2); Bilirubin,Indirect 0.4 mg/dL (0.0-1.2); Bilirubin,Total 0.6 mg/dL (0.3-1.0); Blood Urea Nitrogen 10 mg/dL (8-23); Calcium 8.9 mg/dL (8.6-10.3); Carbon Dioxide 30 mEq/L (23-29); Chloride 104 mEq/L (98-107); Globulin 3.2 g/dL (2.4-3.5); Glucose 246 mg/dL (70-105); Lipase 313 Units/L (11-82); Osmolality,Calculated 297 (280-300); Potassium 3.9 mEq/L (3.5-5.1); Sodium 140 mEq/L (136-145); Total Protein 7.3 g/dL (6.4-8.9); eGFR For African Americans > 60 (> 60); eGFR For Non-African Americans > 60 (> 60)
[2017-09-19] MEDS ORDERED: MetroNIDAZOLE 500 MG/100 ML 500 MG/100 ML BAG IVPB ONE (23:06)
[2017-09-19] MEDS ORDERED: 0.9 % Sodium Chloride 1,000 ML IVC ONE (23:11)
--- NOTE | 2017-09-19 23:16 | Emergency Department Note ---
Disposition Clinical Impression: Diverticulitis Abdominal pain Qualifiers: Abdominal location: left lower quadrant Qualified Code(s): R10.32 - Left lower quadrant pain Pancreatitis, acute Qualifiers: Pancreatitis type: unspecified pancreatitis type Acute pancreatitis complication: unspecified Qualified Code(s): K85.90 - Acute pancreatitis without necrosis or infection, unspecified Disposition: Admitted As Inpatient Condition: Fair Time of Disposition: 23:31 Abdominal Pain HPI - General Chief Complaint: ED Abdominal Pain Stated Complaint: abdominal pain Time Seen by Provider: 09/19/17 21:30 Source: patient Mode of arrival: ambulatory Limitations: no limitations Nursing Notes Reviewed: Yes Vital Signs Reviewed: Yes - History of Present Illness HPI Narrative: Patient is a 67-year-old male who presents to [facility] ED with a chief complaint of left lower quadrant abdominal pain. States his symptoms started a couple days ago. Denies any nausea, vomiting, fever or chills. States the pain has been persistent and has been worse with movement or when he gets up. States he has a history of irritable bowel syndrome. He has not had any recent diarrhea and states his stools today were normal. Denies any blood in his stool. No chest pain, difficulty breathing, problems with urination. Patient does have a history of CAD s/p CABG, type 2 diabetes, TIA. Denies any prior history of diverticulitis though states his sister and mom has had it before. Pt Subjective Complaint: abdominal pain Onset (ago): day(s) Consistency: Worsening Location: LLQ Pain Severity: moderate Pain Scale: 8 Quality: aching Radiation: none Migration to: no migration Improves with: nothing Worsens with: movement Associated symptoms: Denies: nausea, vomiting, fever, chills, constipation, dysuria Treatments prior to arrival: none - Related Data Home Medications Medication Instructions Recorded Confirmed Amlodipine Besylate 5 mg PO DAILY 11/18/15 09/20/17 Aspirin Enteric Coated [Aspirin EC] 162 mg PO DAILY 11/18/15 09/20/17 Atorvastatin Calcium [Lipitor] 80 mg PO HS 11/18/15 09/20/17 Carvedilol 12.5 mg PO BID 11/18/15 09/20/17 Doxazosin Mesylate [Cardura] 8 mg PO HS 11/18/15 09/20/17 FLUoxetine HCl [Prozac] 20 mg PO DAILY 11/18/15 09/20/17 Gabapentin [Neurontin] 600 mg PO QID 11/18/15 09/20/17 Glimepiride [Amaryl] 4 mg PO BID 11/18/15 09/20/17 Liraglutide [Victoza 2-Gaston] 1.8 mg SQ DAILY 11/18/15 09/20/17 OxyCODONE/APAP 10/325 [Percocet 1 each PO QID 11/18/15 09/20/17 10/325 MG] diazePAM [Valium] 5 mg PO BID 11/18/15 09/20/17 Insulin Degludec [Tresiba 10 unit SQ HS 09/19/17 09/20/17 Flextouch U-100] Furosemide [Lasix] 40 mg PO DAILY 09/20/17 09/20/17 Insulin ASPART [Novolog Flexpen] 10 unit SQ TID 09/20/17 09/20/17 Latanoprost [Xalatan] 1 drop OP HS 09/20/17 09/20/17 Lisinopril [Zestril] 40 mg PO BID 09/20/17 09/20/17 Allergies Allergy/AdvReac Type Severity Reaction Status Date / Time baclofen AdvReac "GOOFY" Verified 09/20/17 09:46 exenatide AdvReac patient Verified 09/20/17 09:46 doesnt know metformin AdvReac "I just Verified 09/20/17 09:46 cant take this" NSAIDS (Non-Steroidal AdvReac See Verified 09/20/17 09:46 Anti-Inflamma Comments pravastatin AdvReac "I just Verified 09/20/17 09:46 cant take this" promethazine AdvReac "GOOFY" Verified 09/20/17 09:46 simvastatin AdvReac "i just Verified 09/20/17 09:46 cant take this" sulfamethoxazole AdvReac "Made me Verified 09/20/17 09:46 weird" trimethoprim AdvReac See Verified 09/20/17 09:46 Comments valproic acid AdvReac "I just Verified 09/20/17 09:46 cant take it" All systems ED: reviewed and negative except as stated. Abdominal Pain PMH - Past Medical History Medical history: Reports: CVA, diabetes, hyperlipidemia, hypertension, TIA, other Male Surgical History: Reports: cholecystectomy, coronary bypass (CABG), other Psychiatric history: Reports: anxiety, bipolar, depression - Social History Smoking status: Never smoker Alcohol use: Reports: none Drug use: Reports: none Physical Exam - General Limitations: no limitations General appearance: alert - Head Head exam: atraumatic, normocephalic, normal inspection - Eye Eye exam: Present: normal appearance, EOMI - ENT ENT exam: normal exam, normal oropharynx, mucous membranes moist - Neck Neck exam: Present: normal inspection, full ROM, trachea midline - Chest Chest inspection: Present: normal inspection, symmetric chest wall rise - Respiratory Respiratory exam: Present: normal lung sounds bilaterally - Cardiovascular Cardiovascular exam: Present: regular rate, normal rhythm, normal heart sounds - Abdominal Exam Abdominal exam: Present: soft, tenderness, normal bowel sounds Abdominal tenderness: Present: LLQ, moderate - Extremities Exam Extremities exam: Present: normal inspection, full ROM. Absent: tenderness, pedal edema - Back Exam Back exam: Present: normal inspection, full ROM. Absent: tenderness - Neurological Exam Neurological exam: Present: alert, oriented X3 - Psychiatric Psychiatric exam: Present: normal affect, normal mood - Skin Skin exam: Present: warm, dry, intact, normal color Course Course Narrative: Patient seen and examined. Generalized abdominal tenderness but worse in the left lower quadrant. Abdominal lab work ordered in triage. I added a CT of the abdomen and pelvis to evaluate for possible diverticulitis. CT scan does show some signs of inflammation around the rectosigmoid colon. We will go ahead and treat with IV Flagyl and Cipro. His lipase is elevated in the 300s. No prior history of pancreatitis and he has not an alcoholic or drinks alcohol. He has had a prior cholecystectomy. I did go back and palpate his stomach and he is tender over that region though not as bad as the left lower quadrant. States he has had concern about his big toes causing a pancreatic tumor. However it appears that a side effect of victoza can be acute pancreatitis. Will admit to see if his medications need to be adjusted and for continuation of some antibiotics for diverticulitis. Vital Signs Temperature 98.2 F 09/19/17 20:35 Pulse Rate 79 09/19/17 20:35 Respiratory Rate 22 09/19/17 20:35 Blood Pressure 135/75 09/19/17 20:35 O2 Sat by Pulse Oximetry 94 09/19/17 20:35 Temperature 98.0 F 09/20/17 18:40 Pulse Rate 70 09/20/17 18:40 Respiratory Rate 16 09/20/17 18:40 Blood Pressure 169/88 09/20/17 18:40 O2 Sat by Pulse Oximetry 97 09/20/17 18:40 Oxygen Delivery Oxygen Delivery Room Air Abdominal Pain - Medical Records Medical records reviewed: Yes I reviewed the patient's medical records. - Lab Data Lab results reviewed: Yes I reviewed the patient's lab results. Result diagrams: 09/19/17 20:39 09/19/17 20:39 Lab Results 09/19/17 09/19/17 09/19/17 Range/Units 20:39 20:39 21:00 WBC 7.9 (4.3-11.1) K/mcL RBC 4.89 (4.19-5.50) M/mcL Hgb 14.2 (12.9-16.9) g/dL Hct 42.8 (37.5-50.1) % MCV 87.5 (83.0-100.0) fL MCH 29.0 (28.0-33.3) pg MCHC 33.2 (31.6-35.5) g/dL RDW 13.4 (11.5-14.5) % Plt Count 233 (140-400) K/mcL MPV 11.2 (9.4-12.4) fL Immature Gran % 0.3 (0-4) % Seg Neutrophils % 61.2 % Lymphocytes % 25.8 % Monocytes % 8.1 % Eosinophils % 3.8 % Basophils % 0.8 % Neutrophils # 4.8 (1.6-8.9) K/mcL Lymphocytes # 2.0 (0.6-4.6) K/mcL Monocytes # 0.6 (0.0-1.3) K/mcL Eosinophils # 0.3 (0.0-0.6) K/mcL Basophils # 0.1 (0.0-0.2) K/mcL Sodium 140 (136-145) mEq/L Potassium 3.9 (3.5-5.1) mEq/L Chloride 104 (98-107) mEq/L Carbon Dioxide 30 H (23-29) mEq/L BUN 10 (8-23) mg/dL Creatinine 1.18 (0.70-1.30) mg/dL Est GFR ( Amer) > 60 (> 60) Est GFR (Non-Af Amer) > 60 (> 60) BUN/Creatinine Ratio 8 (6-26) Glucose 246 H (70-105) mg/dL Calculated Osmolality 297 (280-300) Calcium 8.9 (8.6-10.3) mg/dL Total Bilirubin 0.6 (0.3-1.0) mg/dL Direct Bilirubin 0.2 (0.0-0.2) mg/dL Indirect Bilirubin 0.4 (0.0-1.2) mg/dL AST 17 (13-39) Units/L ALT 19 (7-52) Units/L Alkaline Phosphatase 93 (34-104) Units/L Serum Total Protein 7.3 (6.4-8.9) g/dL Albumin 4.1 (3.5-5.7) g/dL Globulin 3.2 (2.4-3.5) g/dL Albumin/Globulin Ratio 1.3 (1.1-2.2) Amylase 43 (29-103) Units/L Lipase 313 H (11-82) Units/L Urine Color Yellow (Yellow) Urine Clarity Clear (Clear) Urine pH 6.5 (5.0-8.0) pH Units Ur Specific [place] 1.021 (1.010-1.025) Urine Protein 100 H (Neg-Trace) mg/dL Urine Glucose (UA) >=1000 H (Normal) mg/dL Urine Ketones Negative (Negative) mg/dL Urine Blood Negative (Negative) Urine Nitrite Negative (Negative) Urine Bilirubin Negative (Negative) Urine Urobilinogen Normal (Normal) mg/dL Ur Leukocyte Esterase Negative (Negative) Urine Microscopic RBC 0-3 (0-3) per hpf Urine Microscopic WBC 0-3 (0-3) per hpf Ur Squamous Epith Cells Few (None-Few) per lpf Urine Bacteria None Seen (None-Few) per hpf Hyaline Casts None Seen (None-Few) per lpf Ur Culture Indicated? NO (NO) - Radiology Data Radiology results reviewed: Yes I reviewed the patient's radiology results. Abdomen/Pelvis CT 09/19/17 21:59 IMPRESSION: 1. Small vague fatty area with thin soft tissue rim and mild surrounding inflammatory changes adjacent to the junction of the sigmoid and descending colon. Findings likely represent epiploic appendagitis and less likely an area of omental infarction. Mild diverticulitis is also in the differential, but felt less likely. 2. Mild prostatomegaly with mild bladder wall thickening. 3. No other acute findings within the abdomen and pelvis. D/ / 09/19/2017 23:06:30 Booker Travis MD / kamila Interpreting Provider: Booker Travis MD Attestation Statement - Attestation Attestation: I examined this patient and my medical decision-making was reviewed with the Resident Physician, Dr. Galaviz. I agree with the documented findings, disposition and treatment plan as described except to the extent set forth below. Patient is a 67-year-old white male with a history of IBS who presents to the emergency room with a two-day history of gradually worsening left lower quadrant abdominal pain that is worse with movement. Patient reports subjective fevers and generalized weakness associated with these symptoms. He denies any vomiting but has been nauseated with this pain. No bowel changes, no urinary symptoms or flank pain, and no bright red blood per rectum. I agree with patient's physical exam findings as documented. Vital signs are stable and patient's in no acute distress on arrival. Patient had been administered IV pain meds and antiemetics, lab Tory evaluation and imaging was performed. Patient's CT shows evidence of acute diverticulitis as well as elevated lipase on lab work with some epigastric pain on exam. Antibiotics will be initiated for diverticulitis and patient will be admitted for continued IV fluids and pain control for possible early pancreatitis secondary to home medication, Victoza. She has been hemodynamically stable during his ED course.
[2017-09-19] MEDS ORDERED: *HR* HYDROcodone/Acet 5/325 mg TABLET PO PRN (23:17)
[2017-09-19] MEDS ORDERED: Naloxone 0.4 MG/ML INJ IVP PRN (23:17)
[2017-09-19] MEDS ORDERED: Ondansetron 4 MG/2 ML VIAL IVP PRN (23:17)
[2017-09-19] MEDS ORDERED: Acetaminophen 325 MG TABLET PO PRN (23:17)
[2017-09-19] MEDS ORDERED: *HR* Promethazine 25 MG/ML VIAL IVP PRN (23:17)
--- NOTE | 2017-09-19 23:53 | Internal Med History&Physical ---
Date of Encounter: 09/19/17 Time of Encounter: 23:00 Internal Medicine - H&P: HPI Chief complaint: Abdominal pain Admitted From: Emergency Dept Plans for Post Hospital Care: Home History of present illness: Mr. Griffiths is a 67 year old male with known PMH of CVA, diabetes, hyperlipidemia , hypertension, PVD and CAD s/p CABG who presented to ER with sudden onset Left lower quad abdomen pain since this morning. His LLQ abd pain is sharp in nature , non radiating, 8/10 in severity and associated with some nausea. Denied any vomiting. Denied any constipation / diarrhea. Denied any sick contacts at home. He never has diverticulitis before. Past Med Surg Social Fam HX - Past Medical History Medical history: CVA, diabetes, hyperlipidemia, hypertension, TIA, other Psychiatric history: anxiety, bipolar, depression - Past Surgical History Surgical History: cholecystectomy, coronary bypass (CABG) (2004) - Social History Smoking Status: Never smoker Smokeless Tobacco Status: No Alcohol use: none Drug use: none - Family History Mother Living Status: Hx Family Cardiac Disorders: Yes Hx Family Neurologic Disorders: Yes Father Living Status: Hx Family Cardiac Disorders: Yes Internal Medicine - H&P: Meds Amlodipine Besylate 5 mg PO DAILY 11/18/15 [History] Aspirin Enteric Coated [Aspirin EC] 162 mg PO DAILY 11/18/15 [History] Atorvastatin Calcium [Lipitor] 80 mg PO HS 11/18/15 [History] Carvedilol 12.5 mg PO BID 11/18/15 [History] Doxazosin Mesylate [Cardura] 8 mg PO HS 11/18/15 [History] FLUoxetine HCl [Prozac] 20 mg PO DAILY 11/18/15 [History] Gabapentin [Neurontin] 600 mg PO QID 11/18/15 [History] Glimepiride [Amaryl] 4 mg PO BID 11/18/15 [History] Liraglutide [Victoza 2-Gaston] 1.8 mg SQ DAILY 11/18/15 [History] OxyCODONE/APAP 10/325 [Percocet 10/325 MG] 1 each PO QID 11/18/15 [History] diazePAM [Valium] 5 mg PO BID 11/18/15 [History] Insulin NPH Hum/Reg Insulin Hm [Novolin 70-30 100 Unit/ml Vial] 6 unit SQ TID [History] Lisinopril [Zestril] 20 mg PO BID 07/19/16 [History] Insulin Degludec [Tresiba Flextouch U-100] 10 unit SQ DAILY 09/19/17 [History] 3 Allergy/AdvReac Type Severity Reaction Status Date / Time Amoxicillin Allergy See Verified 07/28/17 13:06 Comments Erythromycin Base Allergy See Verified 07/28/17 13:06 Comments exenatide Allergy See Verified 07/28/17 13:06 Comments metformin Allergy See Verified 07/28/17 13:06 Comments Penicillins Allergy See Verified 07/28/17 13:06 Comments pravastatin Allergy See Verified 07/28/17 13:06 Comments simvastatin Allergy See Verified 07/28/17 13:06 Comments sulfamethoxazole Allergy See Verified 07/28/17 13:06 Comments trimethoprim Allergy See Verified 07/28/17 13:06 Comments valproic acid Allergy UNKNOWN Verified 07/28/17 13:06 PER PATIENT baclofen AdvReac "GOOFY" Verified 07/28/17 13:06 NSAIDS (Non-Steroidal AdvReac See Verified 07/28/17 13:06 Anti-Inflamma Comments promethazine AdvReac "GOOFY" Verified 07/28/17 13:06 All Systems PM: A 10-system review of systems was performed and is negative for pertinent findings except as documented above in the HPI. Review of systems: All the systems are reviewed everything is benign except the systems and symptoms I mentioned in the history of present illness - Constitutional Vitals: Temp Pulse Resp BP Pulse Ox 98.2 F 79 22 135/75 94 09/19/17 20:35 09/19/17 20:35 09/19/17 20:35 09/19/17 20:35 09/19/17 20:35 General appearance: Present: A&O X 3, answers questions appropriately - Head Head exam: Present: atraumatic, normal inspection - Neck Neck exam general surgery: Present: supple - Respiratory Respiratory exam: Present: decreased breath sounds. Absent: rales, respiratory distress, rhonchi, wheezes - Cardiovascular Cardiovascular exam: Present: RRR, +S1, +S2. Absent: tachycardia - GI/Abdominal GI/Abdominal exam: Present: normal bowel sounds, soft, tenderness (moderate tenderness in LLQ). Absent: guarding, rebound, rigid - Extremities Exam Extremities exam: Absent: calf tenderness, pedal edema, tenderness - Back Exam Back exam: Absent: CVA tenderness (L), CVA tenderness (R) - Neurological Exam Neurological exam: Present: alert, oriented X3 - Psychiatric Psychiatric exam: Present: normal affect, normal mood - Skin Skin exam: Absent: rash Internal Med - H&P Results - Labs CBC & Chem 7: 09/19/17 20:39 09/19/17 20:39 Labs: Short CBC 09/19/17 Range/Units 20:39 WBC 7.9 (4.3-11.1) K/mcL Hgb 14.2 (12.9-16.9) g/dL Hct 42.8 (37.5-50.1) % Plt Count 233 (140-400) K/mcL Neutrophils # 4.8 (1.6-8.9) K/mcL BMP 09/19/17 20:39 Sodium 140 Potassium 3.9 Chloride 104 Carbon Dioxide 30 H BUN 10 Creatinine 1.18 Glucose 246 H Calcium 8.9 Liver Function 09/19/17 Range/Units 20:39 Total Bilirubin 0.6 (0.3-1.0) mg/dL Direct Bilirubin 0.2 (0.0-0.2) mg/dL AST 17 (13-39) Units/L ALT 19 (7-52) Units/L Alkaline Phosphatase 93 (34-104) Units/L Albumin 4.1 (3.5-5.7) g/dL Urine 09/19/17 Range/Units 21:00 Urine Color Yellow (Yellow) Urine Clarity Clear (Clear) Urine pH 6.5 (5.0-8.0) pH Units Ur Specific [place] 1.021 (1.010-1.025) Urine Protein 100 H (Neg-Trace) mg/dL Urine Glucose (UA) >=1000 H (Normal) mg/dL - Impressions ITS Impressions Abdomen/Pelvis CT 09/19/17 21:59 IMPRESSION: 1. Small vague fatty area with thin soft tissue rim and mild surrounding inflammatory changes adjacent to the junction of the sigmoid and descending colon. Findings likely represent epiploic appendagitis and less likely an area of omental infarction. Mild diverticulitis is also in the differential, but felt less likely. 2. Mild prostatomegaly with mild bladder wall thickening. 3. No other acute findings within the abdomen and pelvis. D/ / 09/19/2017 23:06:30 Booker Travis MD / kamila Interpreting Provider: Booker Travis MD - Assessment and plan (1) Diverticulitis Current Visit: Yes Status: Acute Assessment and plan: Place the pt into Med surg for observation Reviewed his CT of Abd - Sigmoid diverticulitis noticed Started on empirical IV Abx Cipro and Flagyl Suggested NPO, however pt wanted to try clear liquids On IV hydration PRN Analgesics (2) Diabetes mellitus Current Visit: No Status: Chronic Assessment and plan: held PO meds started him on ISS Qualifiers: Diabetes mellitus type: type 2 Diabetes mellitus terminal clerk insulin use: with terminal clerk use Diabetes mellitus complication status: with kidney complications Diabetes mellitus complication detail: with chronic kidney disease Chronic kidney disease stage: stage 2 (mild) Qualified Code(s): E11.22 - Type 2 diabetes mellitus with diabetic chronic kidney disease; N18.2 - Chronic kidney disease, stage 2 (mild); Z79.4 - intermediate (current) use of insulin (3) Hypertension Current Visit: No Status: Chronic Assessment and plan: stable with home meds resumed all home meds Qualifiers: Hypertension type: essential hypertension Qualified Code(s): I10 - Essential (primary) hypertension (4) CKD (chronic kidney disease) stage 3, GFR 30-59 ml/min Current Visit: No Status: Chronic Assessment and plan: stable Cr.. at baseline (5) CAD (coronary artery disease) Current Visit: Yes Status: Chronic Assessment and plan: resumed all home meds Qualifiers: Coronary Disease-Associated Artery/Lesion type: [place] artery [place] vs. transplanted heart: [place] heart Associated angina: without angina Qualified Code(s): I25.10 - Atherosclerotic heart disease of [place] coronary artery without angina pectoris - Time Spent With Patient Total time spent is greater than 50% in coordination of care (as documented) at patient's floor/unit and/or counseling patient:
[2017-09-20] MEDS ORDERED: *HR* OxyCODONE/APAP 10/325 TABLET PO PRN (00:40)
[2017-09-20] MEDS: 0.9 % Sodium Chloride 1,000 ML IVC SCH ×2 (01:44→10:16)
[2017-09-20] MEDS ORDERED: Dextrose Gel 15 GM/37.5 ML TUBE PO PRN ×2 (02:00)
[2017-09-20] MEDS ORDERED: *HR* Dextrose 50 % in Water (Syg) 50 ML SYRINGE IVP PRN (02:00)
[2017-09-20] MEDS ORDERED: D5% in Water 1,000 ML IVC PRN (02:00)
[2017-09-20] MEDS: Insulin LISPRO 300 UNITS/3 ML VIAL SQ SCH ×3 (07:42→16:49)
[2017-09-20] MEDS: MetroNIDAZOLE 500 MG/100 ML 500 MG/100 ML BAG IVPB SCH ×3 (07:52→23:43)
[2017-09-20] MEDS: FLUoxetine 20 MG CAPSULE PO SCH (07:53)
[2017-09-20] MEDS: amLODIPine 5 MG TABLET PO SCH (07:53)
[2017-09-20] MEDS: Lisinopril 20 MG TABLET PO SCH ×2 (07:53→21:55)
[2017-09-20] MEDS: Aspirin Enteric Coated 81 MG Tablet PO SCH (07:53)
[2017-09-20] MEDS: diazePAM 5 MG TABLET PO SCH ×2 (07:53→21:55)
[2017-09-20] MEDS: Gabapentin 300 MG CAPSULE PO SCH ×4 (07:53→21:55)
--- NOTE | 2017-09-20 15:01 | Internal Med Progress Note ---
Date of Encounter: 09/20/17 Time of Encounter: 13:30 - Assessment and plan (1) Diverticulitis Current Visit: Yes Status: Acute Assessment and plan: Place the pt into Med surg for observation Reviewed his CT of Abd - Sigmoid diverticulitis noticed Started on empirical IV Abx Cipro and Flagyl Suggested NPO, however pt wanted to try clear liquids On IV hydration PRN Analgesics 09/20/2017-pain in significantly improved. We will advance his diet as tolerated. Continue IV antibiotics for now. If he is able to advance his diet we may be able to discharge him tomorrow with 10 days total of ciprofloxacin and Flagyl. (2) Diabetes mellitus Current Visit: No Status: Chronic Assessment and plan: held PO meds started him on ISS Qualifiers: Diabetes mellitus type: type 2 Diabetes mellitus usp insulin use: with statistical secretary use Diabetes mellitus complication status: with kidney complications Diabetes mellitus complication detail: with chronic kidney disease Chronic kidney disease stage: stage 2 (mild) Qualified Code(s): E11.22 - Type 2 diabetes mellitus with diabetic chronic kidney disease; N18.2 - Chronic kidney disease, stage 2 (mild); Z79.4 - group home (current) use of insulin (3) Hypertension Current Visit: No Status: Chronic Assessment and plan: stable with home meds resumed all home meds Qualifiers: Hypertension type: essential hypertension Qualified Code(s): I10 - Essential (primary) hypertension (4) CKD (chronic kidney disease) stage 3, GFR 30-59 ml/min Current Visit: No Status: Chronic Assessment and plan: stable Cr.. at baseline (5) CAD (coronary artery disease) Current Visit: Yes Status: Chronic Assessment and plan: resumed all home meds Qualifiers: Coronary Disease-Associated Artery/Lesion type: [place] artery [place] vs. transplanted heart: [place] heart Associated angina: without angina Qualified Code(s): I25.10 - Atherosclerotic heart disease of [place] coronary artery without angina pectoris - Time Spent With Patient Total time spent is greater than 50% in coordination of care (as documented) at patient's floor/unit and/or counseling patient: 25 - 35 minutes - Subjective Interval history: Patient states that his left lower quadrant abdominal pain is significantly improved and is now graded as 2/10 - Constitutional Vitals: Temp Pulse Resp BP Pulse Ox 98.4 F 70 16 160/85 92 09/20/17 10:47 04/05/18 10:47 09/20/17 10:47 09/20/17 10:47 09/20/17 10:47 General appearance: Present: A&O X 3, answers questions appropriately Exam: GENERAL: Alert, moderate distress, cooperative EYES: PERRLA, EOMI EARS: External ears normal, canals clear OROPHARYNX: Lips, mucosa, and tongue normal. Teeth and gums normal. Oropharynx normal. NECK: No jugulovenous distention, No carotid bruits, Carotid pulse normal contour, Supple LUNGS: Lungs clear to auscultation, Good diaphragmatic excursion CARDIAC: Normal S1 and S2; no rubs, murmurs, or gallops ABDOMEN: Abdomen soft, mild tender to palpation in the left lower quadrant, no guarding no rigidity felt EXTREMITIES: Extremities normal, no deformities, edema, clubbing or skin discoloration. Good capillary refill., No ulcers NEURO: Gait normal. Reflexes normal and symmetric. Sensation grossly intact, Cranial nerves II-XII intact PULSES: 2+ radial, 2+ carotid Rest of the exam is non contributory Internal Medicine: Result - Labs CBC & Chem 7: 09/19/17 20:39 09/19/17 20:39 Consult Discharge Plan - Plan Referrals: Stefano Ontiveros MD [Primary Care Provider] -
[2017-09-20] MEDS ORDERED: Insulin LISPRO 300 UNITS/3 ML VIAL SQ SCH (21:00)
[2017-09-20] MEDS ORDERED: NON-FORMULARY MEDICATION 1 EACH EACH (Lisinopril [Zestril] 40 MG) PO SCH (21:00)
[2017-09-21] MEDS: Aspirin Enteric Coated 81 MG Tablet PO SCH (07:35)
[2017-09-21] MEDS: amLODIPine 5 MG TABLET PO SCH (07:36)
[2017-09-21] MEDS: Insulin LISPRO 300 UNITS/3 ML VIAL SQ SCH ×2 (07:36→11:51)
[2017-09-21] MEDS: Lisinopril 20 MG TABLET PO SCH (07:36)
[2017-09-21] MEDS: Gabapentin 300 MG CAPSULE PO SCH ×2 (07:36→11:51)
[2017-09-21] MEDS: MetroNIDAZOLE 500 MG/100 ML 500 MG/100 ML BAG IVPB SCH (07:36)
[2017-09-21] MEDS: diazePAM 5 MG TABLET PO SCH (07:36)
[2017-09-21] MEDS: FLUoxetine 20 MG CAPSULE PO SCH (07:36)
[2017-09-21 11:26] VITALS: BP 154/78
--- NOTE | 2017-09-21 14:21 | Discharge Summary ---
- NOTES TO OUTPATIENT PROVIDER Notes to Outpatient Provider: f/u with PCP within a week. Date of Encounter: 09/21/17 Time of Encounter: 14:17 - Discharge Diagnosis (1) Diverticulitis Priority: Primary Status: Acute (2) Diabetes mellitus Priority: Secondary Status: Chronic Qualifiers: Diabetes mellitus type: type 2 Diabetes mellitus assisted insulin use: with remote computer terminal operator use Diabetes mellitus complication status: with kidney complications Diabetes mellitus complication detail: with chronic kidney disease Chronic kidney disease stage: stage 2 (mild) Qualified Code(s): E11.22 - Type 2 diabetes mellitus with diabetic chronic kidney disease; N18.2 - Chronic kidney disease, stage 2 (mild); N18.2 - Chronic kidney disease, stage 2 (mild); Z79.4 - longterm (current) use of insulin; Z79.4 - terminal operations manager (current) use of insulin; Z79.4 - longterm (current) use of insulin; Z79.4 - longterm ( current) use of insulin (3) Hypertension Priority: Secondary Status: Chronic Qualifiers: Hypertension type: essential hypertension Qualified Code(s): I10 - Essential (primary) hypertension (4) CKD (chronic kidney disease) stage 3, GFR 30-59 ml/min Priority: Secondary Status: Chronic (5) CAD (coronary artery disease) Priority: Secondary Status: Chronic Qualifiers: Coronary Disease-Associated Artery/Lesion type: [place] artery [place] vs. transplanted heart: [place] heart Associated angina: without angina Qualified Code(s): I25.10 - Atherosclerotic heart disease of [place] coronary artery without angina pectoris Hospital course: Mr. Griffiths is a 67 year old male presented with abdominal pain. Further workup including abdominal CT revealed acute sigmoid diverticulitis. He was treated with IV Cipro and Flagyl with improvement of symptoms. He has been able to tolerate diet. His vital signs have been stable and afebrile. He will be discharged home today with continuation of oral antibiotics for 7 days. He was instructed to take high-fiber diet. He will follow up with primary care physician within a week. Discharge discussed with: patient Time spent discussing smoking cessation with patient: more than 10 minutes - Time Spent with Patient Total time spent providing and/or coordinating discharge services: Less than 30 minutes - Discharge Medications Prescriptions: Ciprofloxacin [Cipro] 500 mg PO BID #14 tablet metroNIDAZOLE [Flagyl] 500 mg PO BID #14 tablet Home Medications: Amlodipine Besylate 5 mg PO DAILY 11/18/15 [History] Aspirin Enteric Coated [Aspirin EC] 162 mg PO DAILY 11/18/15 [History] Atorvastatin Calcium [Lipitor] 80 mg PO HS 11/18/15 [History] Carvedilol 12.5 mg PO BID 11/18/15 [History] Doxazosin Mesylate [Cardura] 8 mg PO HS 11/18/15 [History] FLUoxetine HCl [Prozac] 20 mg PO DAILY 11/18/15 [History] Gabapentin [Neurontin] 600 mg PO QID 11/18/15 [History] Glimepiride [Amaryl] 4 mg PO BID 11/18/15 [History] Liraglutide [Victoza 2-[place]] 1.8 mg SQ DAILY 11/18/15 [History] OxyCODONE/APAP 10/325 [Percocet 10/325 MG] 1 each PO QID 11/18/15 [History] diazePAM [Valium] 5 mg PO BID 11/18/15 [History] Insulin Degludec [Tresiba Flextouch U-100] 10 unit SQ HS 09/19/17 [History] Furosemide [Lasix] 40 mg PO DAILY 09/20/17 [History] Insulin ASPART [Novolog Flexpen] 10 unit SQ TID 09/20/17 [History] Latanoprost [Xalatan] 1 drop OP HS 09/20/17 [History] Lisinopril [Zestril] 40 mg PO BID 09/20/17 [History] Ciprofloxacin [Cipro] 500 mg PO BID #14 tablet 09/21/17 [Rx] Lisinopril [Zestril] 20 mg PO BID tablet 09/21/17 [Rx] metroNIDAZOLE [Flagyl] 500 mg PO BID #14 tablet 09/21/17 [Rx] Allergies/Adverse Reactions: 3 Allergy/AdvReac Type Severity Reaction Status Date / Time baclofen AdvReac "GOOFY" Verified 09/20/17 09:46 exenatide AdvReac patient Verified 09/20/17 09:46 doesnt know metformin AdvReac "I just Verified 09/20/17 09:46 cant take this" NSAIDS (Non-Steroidal AdvReac See Verified 09/20/17 09:46 Anti-Inflamma Comments pravastatin AdvReac "I just Verified 09/20/17 09:46 cant take this" promethazine AdvReac "GOOFY" Verified 09/20/17 09:46 simvastatin AdvReac "i just Verified 09/20/17 09:46 cant take this" sulfamethoxazole AdvReac "Made me Verified 09/20/17 09:46 weird" trimethoprim AdvReac See Verified 09/20/17 09:46 Comments valproic acid AdvReac "I just Verified 09/20/17 09:46 cant take it" Date of admission: 09/19/17 23:33 Primary care physician: Stefano Ontiveros MD Anticipated date of discharge: 09/21/17 - Constitutional Vitals: Temp Pulse Resp BP Pulse Ox 98.7 F 68 16 154/78 95 09/21/17 09:53 09/21/17 09:53 09/21/17 09:53 09/21/17 09:53 09/21/17 09:53 General appearance: Present: A&O X 3, answers questions appropriately Exam: PHYSICAL EXAMINATION: GENERAL APPEARANCE: The patient is alert, oriented and in no acute distress. HEENT: Head is normocephalic. The sinuses are nontender. Pupils are equal and reactive. The nares are patent. Oropharynx clear without lesions. NECK: Supple without lymphadenopathy. HEART: Regular rate and rhythm. LUNGS: No crackles or wheezes are heard. ABDOMEN: Soft, nontender, nondistended with good bowel sounds heard. Inguinal area is normal. EXTREMITIES: Without cyanosis, clubbing or edema. NEUROLOGICAL: Gross nonfocal. SKIN: Warm and dry without any rash. - Patient Status Disposition: Home, Self-Care Condition: Fair Functional capacity at discharge: independent ambulation Overall status at discharge: patient is back to baseline - Discharge Instructions Instructions: Diverticulitis (DC) Follow Up With: Stefano Ontiveros MD [Primary Care Provider] - 09/26/17 11:00 am Additional Instructions: Follow-up appointments: If there is not an appointment listed below, please call your physician and schedule a follow-up appointment. If you have congestive heart failure and your symptoms return, make an appointment with your physician. Medication List: Carry an up to date list of medications you are taking at all time. We have given you an updated medication list including any new medications that you have been prescribed. Please provide that list to your primary provider Symptoms: If your condition changes or you experience any of the following symptoms, notify your physician immediately: Unusual or worsening pain, fever, persistent nausea and vomiting, bleeding, increase in swelling (especially in your legs), sudden weight gain, extreme dizziness, chest pain, increased drainage or redness from a wound or incision. Go to the emergency department if you experience a problem with breathing. Weights: If you have a history of swelling or shortness of breath, weigh yourself daily and notify your physician if you have a weight gain of two or more pounds in one day or 5 or more pounds in a week. If you experience any of the warning signs for stroke: Sudden numbness or weakness of the face, arm or leg; especially on one side of the body, sudden confusion, trouble speaking or understanding, sudden trouble seeing in one or both eyes, sudden trouble walking, dizziness, loss of balance or coordination, sudden sever headache with no cause; Call 911 or go to the emergency room. Stroke is a medical emergency. Some risk factors for stroke: Age, cigarette smoking, diabetes, excessive alcohol consumption, family history , high blood pressure, overweight, physical inactivity, prior stroke, heart attack, diagnosis of carotid artery stenosis or other artery disease. If you smoke, STOP: Smoking or tobacco use significantly increases your risk of heart and lung disease. Your chance of disease greatly increases if you continue to smoke. For more information, call the [place] tobacco quit line for smoking cessation QUIT-NOW ( ) - Diet and Activity Activity: increase activity as tolerated Diet: diabetic diet
== END 2017-09-21 15:46 | disposition home or self-care (01) ==
LOC: EMEROO 20:25 → 3NENU 20:25 → SUATTDRO 23:33 → 3NENU 23:55
PROVIDERS: ADMIT Internal Medicine; ATTEND Internal Medicine